=== PATIENT | female | born 1990 | race Caucasian/White ===

== ENCOUNTER 2024-06-02 14:00 | Emergency (ER) | payer MEDICAID, SELFPAY ==
[2024-06-02 14:17] VITALS: BP 127/90; PULSE 83; RESP 16; TEMP 36.8; O2SAT 98; BMI 34.3
--- NOTE | 2024-06-02 14:23 | ED_ITS ---
HPI - Skin/Abscess/Foreign Bdy General: Chief complaint: Skin/Abscess/Foreign Body Stated complaint: thinks she has scabies Time Seen by Provider: 06/02/24 14:21 History of Present Illness: 33-year-old female comes in today for co ncerns of a harvest bite infestation. Patient has treated the That she believes transmitted the infestation to her and symptoms seem to improve a little but has returned. Patient appears nontoxic. Patient appears in no acute distress. Review of Systems General: Reports: 10 or more systems reviewed and unremarkable except in HPI and below Skin/Breast: Reports: rash Physical Exam Const: COMMON NORMALS: alert HENMT: COMMON NORMALS: normocephalic HEAD & SCALP: normocephalic Neck/C-Spine: COMMON NORMALS: full ROM Resp: COMMON NORMALS: normal respiratory effort and clear to auscultation bilaterally AUSCULTATION: clear to auscultation bilaterally Cardio: COMMON NORMALS: regular rate and regular rhythm RATE: regular rate RHYTHM: regular rhythm GI: COMMON NORMALS: non-tender Back/Pelvis: COMMON NORMALS: thoracic and lumbar spine normal to inspection Extremity: COMMON NORMALS: normal to inspection Neuro: SENSORIUM/ORIENTATION: Yes alert Skin: NARRATIVE SKIN EXAM: Patient has crusted lesions multiple across her body. Appearance of insect bites. Course Vital Signs: Vital signs: Vital Signs Temperature 98.3 F 06/02/24 14:17 Pulse Rate 83 06/02/24 14:17 Respiratory Rate 14 06/02/24 14:42 Blood Pressure 127/90 06/02/24 14:17 Pulse Oximetry 98 06/02/24 14:17 Oxygen Delivery Me thod Room Air 06/02/24 14:17 MDM - Skin/Abscess/Foreign Bdy Medicial Decision Making 33-year-old female comes in today for concerns of harvest mite infestation. Patient does have a history of exposure through a infested animal. Patient appears nontoxic. Patient is . Differential diagnosis includes mite infestation, scabies, parasitosis. Go ahead and treat with permethrin topical cream at this time. Recommended repeat treatment in 7 to 14 days. Patient reported understanding of care plan need for follow-up with primary care for further instructions. Patient was agreeable to plan and need for follow-up. No radiology studies performed this visit Discharge Plan Discharge Patient Disposition: Home Clinical Impression: [place] mite infestation Condition: Stable Prescriptions: New permethrin 5 % cream 1 applic topical Q14D Qty: 60 0RF Rx Instructions: apply second treatment 14 days after first treatment Discharge Orders: Discharge ED (Routine); Ordered 06/02/24 Ordered By: Evens Medina Discharge Diet: Usual diet Discharge Activity: Increase activity as tolerated Patient Instructions: Scabies (ED) Activity Restrictions/Additional Instructions: Apply cream head to toe and leave on for 8 to 12 hours. Wash off. Repeat in 1 to 2 weeks as needed. Coding Level of Care Code ED Veterans Services Specialist for Mildred Miller
[2024-06-02 14:42] VITALS: RESP 14
== END 2024-06-02 14:43 | disposition home or self-care (01) ==
PROVIDERS: Emergency Provider Nurse Practitioner Family
DX: B88.0 Other acariasis (principal)
CPT/HCPCS: 99283

== ENCOUNTER 2024-06-08 13:59 | Inpatient (IN) | payer MEDICAID, SELFPAY ==
[2024-06-08] VITALS (12 sets, daily range): BP systolic 124–167; BP diastolic 71–90; PULSE 58–86; RESP 16–18; TEMP 36.7–36.9; O2SAT 97–99; BMI 30.9
[2024-06-08] MEDS: oxytocin 30 UNIT/500 ML BAG 600 UNIT IV (14:11)
[2024-06-08] MEDS: dextrose 5%-lactated ringers 1,000 ML 125 ML IV (14:11)
--- NOTE | 2024-06-08 14:29 | PM.HP ---
Providers/Chief Complaint Admitting Physician: Ash Blanchard MD Chief Complaint: homebirth History of Present Illness Ree Morales is a 33 year old G3 now P3 at 39.2 weeks gestation by her history. is complicated by care in [place] without records available, smoker, precipitous delivery. The patient had been seen Dr. Cade in [place] and had not seen them for the last 2 to 3 weeks. They began to have increased contractions and were evaluated on Thursday but she was only 1 cm dilated at that time so was sent home. On the day of admission, she began to have increased contractions around 11 AM. She felt like she was very weak and could not stand and her took her to her dad's. She was not able to get into the car and they laid her down on a cot in the shed. The patient was unable to stand up and was acting delirious according to her . They called EMS. The patient began to have significant contractions and delivered in her [id number]'s should at 1326 on 06/08/2024. According to the patient's , there were no complications. The patient and infant were brought to the OB unit for further evaluation. I was the next on the list for on-call patients. Upon arrival, the patient's placenta was still in the vaginal vault. The patient currently denies any chest pains, shortness of breath, nausea, vomiting, diarrhea, constipation, dysuria, fever. She denies any complications with the including high blood pressure, gestational diabetes and preeclampsia. She denies any other underlying significant medical complications. History does seem to be limited. Review of Systems Narrative: See HPI Medications/Allergies Home Medications Medication Instructions Recorded Confirmed Last Taken Type permethrin 5 % topical cream 1 applic topical Q14D 2 doses #60 06/02/24 Unknown Rx grams Allergies Allergy/AdvReac Type Severity Reaction Status Date / Time hydrocodone Allergy Unknown Verified 06/02/24 14:20 PFSH Acute PFSH: Surgical History (Updated 06/08/24 @ 14:34 by Ash Blanchard MD) No pertinent past surgical history Social History (Updated 06/08/24 @ 14:34 by Ash Blanchard MD) Smoking and tobacco/nicotine status: current every day tobacco/nicotine user cigarettes Packs smoked per day: 0.25 Alcohol intake: never Substance/Drug Use: never Vitals/I&O/Wt Last Vital Signs Pulse 86 06/08/24 14:15 BP 124/76 06/08/24 14:15 Physical Exam Narrative: General: Alert and oriented x3, exaggerated movements and responses. Eyes: Pupils dilated, equal round and reactive to light and accommodation Mouth: Mucous membranes moist, pharynx non-erythematous Cardiac: Regular rate and rhythm without murmurs Lungs: Clear to auscultation bilaterally without wheezes, crackles or rhonchi Abdomen: Soft, fundus is firm and midline and below the umbilicus. : Placenta still in the vaginal vault with umbilical cord resting on patient's abdomen. Extremities: Trace edema in the bilateral lower extremities, dried blood down the patient's bilateral legs and feet. A&P Assessment and plan (1) Spontaneous vaginal delivery: The patient delivered spontaneously at home and we will proceed with delivering her placenta and the aftercare. We will get blood work done and try and obtain labs from her OB in [place]. Will watch for any signs of complications. (2) Smoker: Attestations Medical Necessity Statement*: The patient will be here for greater than 2 midnights due to routine management of labor and delivery. Coding Level of Care Code Acute Code for Chg Fwd Diagnoses Spontaneous vaginal delivery O80 Smoker F17.200
--- NOTE | 2024-06-08 14:37 | P.PCNOB_ITS ---
Delivery Note: Date of delivery: June 08, 2024 Pre-delivery diagnoses: 1. Intrauterine at 39.2 weeks gestation 2. Smoker 3. Precipitous delivery 4. Patient of Dr. Caed in [place] Post-delivery diagnoses: 1. Intrauterine status post s pontaneous vaginal delivery at 39.2 weeks gestation 2. Smoker 3. Precipitous delivery 4. Patient of Dr. Cade in [place] 5. Delivery of healthy male cornel beckmanng 6 pounds 12 ounces. Apgars unknown. Procedure: Delivery of placenta Delivering Physician: Ash Blanchard MD Estimated blood loss (mL): 100 Findings: 1. Intact placenta with central umbilic al cord insertion site 2. Healthy appearing male infant weighi ng 6 pounds 12 ounces. Pre-Delivery Course: Ree Morales is a 33 year old G3 now P3 at 39.2 weeks gestation by her history. is complicated by care in [place] without records available, smoker, precipitous delivery. The patient had been seen Dr. Cade in [place] and had not seen them for the last 2 to 3 weeks. They began to have increased contractions and were evaluated on Thursday but she was only 1 cm dilated at that time so was sent home. On the day of admission, she began to have increased contractions around 11 AM. She felt like she was very weak and could not stand and her took her to her dad's. She was not able to get into the car and they laid her down on a cot in the shed. The patient was unable to stand up and was acting delirious according to her . They called EMS. The patient began to have significant contractions and delivered in her kilaxz-eq-oih's shed at 1326 on 06/08/2024. The infant's father delivered the baby with the help of EMS. According to the patient's , there were no complications. The patient and were brought to the OB unit for further evaluation. I was the next on the list for unassigned patients. Upon arrival, the patient's placenta was still in the vaginal vault. Dried blood was noted on the bilateral legs and feet. The patient was comfortable. Delivery: The patient was set up and iodine was used to clean the vaginal area. Cord blood was obtained. Traction was placed on umbilical cord and the placenta delivered without complication at 1411 on 06/08/2024. The placenta was noted to be intact with a central umbilical cord insertion site. The uterus was massaged and noted to be firm and midline. It was a little high, so a straight catheter was used to drain the bladder and a urine sample was obtained and sent for urine culture and urine drug screen. The patient did not receive any medication prior to obtaining the sample. The cervix was inspected and no lacerations were noted. The vaginal wall was inspected and a first-degree tear was noted on the right superior vaginal wall. This was not bleeding and no suturing was necessary. The patient's bleeding has been very little. Currently the infant and patient are doing well. History History History 3 Term Miscarriages/Ectopic Living Children 3 Past Pregnancies Del. Date GA/Weeks Outcome Route Wt Inf Gender Labor Lgth Comp. Anesth esia Location 06/08/24 39 live - full term Vaginal 6 lb 12 oz Male Delivery Date: 06/08/24 Last Updated by: Ash Blanchard MD Delivered at home in father in law's shed, saw Dr Cade for care A&P Assessment and plan (1) Spontaneous vaginal delivery: Coding Level of Care Code Acute Code for Chg Fwd Diagnoses Spontaneous vaginal delivery O80
[2024-06-08 15:53] LABS: Amphetamines Screen Urine Positive (Negative); Barbiturates Screen Urine Negative (Negative); Benzodiazepines Screen Urine Negative (Negative); Cocaine Screen Urine Negative (Negative); Opiate Screen Urine Negative (Negative); PCP Screen Urine Negative (Negative); THC Screen Urine Negative (Negative)
[2024-06-08 16:36] LABS: Basophils % 0.4 %; Eosinophils % 0.4 %; Hematocrit 35.8 % (36-47); Lymphocytes # 1.7 10^3/uL (0.8-4.8); Lymphocytes % 15.7 %; Mean Corpuscular HGB Conc 33.5 g/dL (30-55); Mean Corpuscular Hemoglobin 29.5 pg (27-33); Mean Platelet Volume 10.4 fL (7.4-10.4); Monocytes # 0.9 10^3/uL (0.2-0.9); Monocytes % 8.3 %; Neutrophils # 7.89 10^3/uL (1.8-7.7); Nucleated Red Blood Cells # 0.1 /100WBC; Platelet Count 390 10^3/cmm (157-399); Red Blood Count 4.07 10^6/uL (3.85-5.65); Red Cell Distribution Width 16.2 % (12.1-15.1); White Blood Count 10.66 10^3/uL (3.29-11.43)
[2024-06-08 16:58] LABS: Hepatitis B Surface Antigen Non-Reactive (Nonreactive); Rapid Plasma Reagin Syphilis Nonreactive (Nonreactive); Rubella IgG 33.3 IU/mL (0.0-10.0)
[2024-06-08 17:09] LABS: HIV 1 & 2 Antibody Non-Reactive (Non-Reactiv); HIV 1 & 2 Antigen Non-Reactive (Non-Reactiv)
[2024-06-08] MEDS: ibuprofen 800 mg tablet PO (20:13)
[2024-06-08] MEDS: docusate sodium 100 mg Capsule PO (20:14)
[2024-06-09 03:24] LABS: Hematocrit 32.4 % (36-47); Mean Corpuscular HGB Conc 32.7 g/dL (30-55); Mean Corpuscular Hemoglobin 28.6 pg (27-33); Mean Corpuscular Volume 87.3 fl (85-98); Mean Platelet Volume 10.5 fL (7.4-10.4); Platelet Count 342 10^3/cmm (157-399); Red Blood Count 3.71 10^6/uL (3.85-5.65); Red Cell Distribution Width 15.8 % (12.1-15.1); White Blood Count 10.93 10^3/uL (3.29-11.43)
[2024-06-09 04:04] VITALS: BP 111/75; PULSE 69; RESP 16; TEMP 36.8; O2SAT 99
[2024-06-09 06:00] VITALS: BMI 30.9
[2024-06-09] MEDS: PRENATAL VIT NO.130/IRON/FOLIC 1 EACH TABLET PO (08:14)
[2024-06-09] MEDS: ibuprofen 800 mg tablet PO ×2 (08:14→14:39)
[2024-06-09] MEDS: docusate sodium 100 mg Capsule PO (08:14)
[2024-06-09 10:12] VITALS: BP 110/74; PULSE 60; RESP 16; TEMP 36.6; TEMP 36.7
[2024-06-09 14:39] VITALS: BP 119/75; PULSE 73; RESP 16; TEMP 36.6; TEMP 36.7; O2SAT 98
--- NOTE | 2024-06-09 17:10 | P.DS_ITS ---
Discharge Providers Date of Admission: 06/08/24 13:59 Date of Discharge: June 09, 2024 Attending Provider at Admission: Ash Blanchard MD Attending Provider at Discharge: Ash Blanchard MD Diagnoses at Discharge Discharge Diagnosis (1) Spontaneous vaginal delivery: Status: Acute Other Information Additional DC diagnoses/information: 1. Intrauterine status post spontaneous vaginal delivery at 39.2 weeks gestation 2. Smoker 3. Precipitous delivery 4. Patient of Dr. Cade in [place] 5. Delivery of healthy male weighing 6 pounds 12 ounces Reason for Visit Reason for Visit: homebirth Brief History: Ree Morales is a 33 year old G3 now P3 at 39.2 weeks gestation by her history. is complicated by care in [place] without records available, smoker, precipitous delivery. The patient had been seen Dr. Cade in [place] and had not seen them for the last 2 to 3 weeks. They began to have increased contractions and were evaluated on Thursday but she was only 1 cm dilated at that time so was sent home. On the day of admission, she began to have increased contractions around 11 AM. She felt like she was very weak and could not stand and her took her to her dad's. She was not able to get into the car and they laid her down on a cot in the shed. The patient was unable to stand up and was acting delirious according to her . They called EMS. The patient began to have significant contractions and delivered in her [id number]'s shed at 1326 on 06/08/2024. The 's father delivered the baby with the help of EMS. According to the patient's , there were no complications. The patient and infant were brought to the OB unit for further evaluation. I was the next on the list for unassigned patients. Upon arrival, the patient's placenta was still in the vaginal vault. Dried blood was noted on the bilateral legs and feet. The patient was comfortable. Hospital Course Hospital Course The patient's placenta was delivered without complication. She did not require any suturing. Overall her pain has been well-controlled. Her bleeding has been decreasing well. She is ambulating, voiding, passing gas and tolerating food by mouth. The patient did have a positive drug screen for amphetamines that was obtained prior to giving her any other medications. Child protective services has been in contact. The patient is doing well and may be discharged home. All questions were answered. She will plan to follow-up at 6 weeks . Physical Exam Narrative: General: Alert and oriented x3 Cardiac: Regular rate and rhythm without murmurs Lungs: Clear to auscultation bilaterally without wheezes, crackles or rhonchi Abdomen: Soft, mild tenderness over uterus. The uterus is firm and 2 cm below the umbilicus. Extremities: Trace edema in the bilateral lower extremities Discharge Data Studies Completed and Pending Pending at discharge Category Date Time Status Chlamydia/Gonorrh RNA,TMA URO Stat Lab 06/08/24 14:40 Received Laboratory Results WBC 10.93 10^3/uL (3.29-11.43) 06/09/24 03:15 RBC 3.71 10^6/uL (3.85-5.65) L 06/09/24 03:15 Hgb 10.60 g/dL (11.27-16.99) L 06/09/24 03:15 Hct 32.4 % (36-47) L 06/09/24 03:15 MCV 87.3 fl (85-98) 06/09/24 03:15 MCH 28.6 pg (27-33) 06/09/24 03:15 MCHC 32.7 g/dL (30-55) 06/09/24 03:15 RDW 15.8 % (12.1-15.1) H 06/09/24 03:15 Plt Count 342 10^3/cmm (157-399) 06/09/24 03:15 MPV 10.5 fL (7.4-10.4) H 06/09/24 03:15 Neut % (Auto) 74.0 % 06/08/24 16:07 Lymph % (Auto) 15.7 % 06/08/24 16:07 Brown % (Auto) 8.3 % 06/08/24 16:07 Eos % (Auto) 0.4 % 06/08/24 16:07 Baso % (Auto) 0.4 % 06/08/24 16:07 Neut # (Auto) 7.89 10^3/uL (1.8-7.7) H 06/08/24 16:07 Lymph # (Auto) 1.7 10^3/uL (0.8-4.8) 06/08/24 16:07 Brown # (Auto) 0.9 10^3/uL (0.2-0.9) 06/08/24 16:07 Eos # (Auto) 0.0 10^3/uL (0.0-0.8) 06/08/24 16:07 Baso # (Auto) 0.0 10^3/uL (0.0-0.1) 06/08/24 16:07 Nucleated RBC % (auto) 1.0 % 06/08/24 16:07 Nucleated RBCs # 0.1 /100WBC 06/08/24 16:07 Urine Opiates Screen Negative ng/mL (Negative) 06/08/24 14:40 Ur Barbiturates Screen Negative ng/mL (Negative) 06/08/24 14:40 Ur Phencyclidine Scrn Negative ng/mL (Negative) 06/08/24 14:40 Ur Amphetamines Screen Positive ng/mL (Negative) H 06/08/24 14:40 U Benzodiazepines Scrn Negative ng/mL (Negative) 06/08/24 14:40 Urine Cocaine Screen Negative ng/mL (Negative) 06/08/24 14:40 U Marijuana (THC) Screen Negative ng/mL (Negative) 06/08/24 14:40 RPR Nonreactive (Nonreactive) 06/08/24 16:07 Hep Bs Antigen Cancelled 06/08/24 16:07 Hep Bs Antigen Non-reactive (Nonreactive) 06/08/24 16:07 HIV 1&2 Ab & HIV 1 Ag Non-reactive (Non-Reactiv) 06/08/24 16:07 HIV 1&2 Antibody Non-reactive (Non-Reactiv) 06/08/24 16:07 Rubella IgG Antibody 33.3 IU/mL (0.0-10.0) H 06/08/24 16:07 Blood Type A Positive 06/08/24 16:07 Rho(D) Type Rh positive 06/08/24 16:07 Antibody Screen Negative 06/08/24 16:07 Vitals Last Vital Signs Temp 98.0 F 06/09/24 14:39 Pulse 73 06/09/24 14:39 Resp 16 06/09/24 14:39 BP 119/75 06/09/24 14:39 Pulse Ox 98 06/09/24 14:39 O2 Del Method Room Air 06/09/24 14:39 Discharge Plan Discharge Patient Disposition: Home Condition: Stable Prescriptions: New ibuprofen 800 mg Tablet 800 mg PO TID Qty: 30 0RF Vitamin 27 mg iron- 800 mcg Tablet 1 tab PO DAILY Qty: 30 0RF ferrous sulfate 325 mg (65 mg iron) tablet 325 mg PO DAILY Qty: 30 0RF Continued permethrin 5 % cream 1 applic topical Q14D Qty: 60 0RF Rx Instructions: apply second treatment 14 days after first treatment Discharge Orders: Discharge Order (Routine); Ordered 06/09/24 Ordered By: Ash Blanchard Referrals: Ash Blanchard MD [Physician] - 6 Weeks Discharge Diet: Regular Discharge Activity: Increase activity as tolerated Patient Instructions: Depression (DC), Opioid Safety (DC), Preeclampsia and Eclampsia After Delivery (GEN), Hemorrhage (DC), OB D&C - [facility], OB Food/Drug Interaction Guide, Opioid Safety, OB [facility], OB Vaginal Deliveries, Abnormal Bleeding Activity Restrictions/Additional Instructions: Nothing per vagina for 6 weeks. Showers are recommended instead of baths for the first 6 weeks. Follow up with your DEPOSITION OPERATOR at 6 weeks or sooner if needed. Discharge Attestations Time Spent in Discharge Care*: less than 30 min Quality Metrics Clinical Quality Measures [ No reported AMI, CVA or VTE this stay] Coding Level of Care Code Acute Code for Chg Fwd Diagnoses Spontaneous vaginal delivery O80
[2024-06-09 17:31] VITALS: BP 133/27; PULSE 73; RESP 15; TEMP 36.6; O2SAT 98
[2024-06-10 15:40] LABS: Chlamydia Trachomatis RNA TMA NOT DETECTED (NOT DETECTED); Neisseria Gonorrhoeae RNA, TMA NOT DETECTED (NOT DETECTED)
== END 2024-06-09 17:32 | disposition home or self-care (01) | DRG 807 ==
PROVIDERS: Admitting Provider Family Medicine; Visit Provider Family Medicine
DX: O99.334 Smoking (tobacco) complicating childbirth (principal); Z37.0 Single live birth; F17.210 Nicotine dependence, cigarettes, uncomplicated; O62.3 Precipitate labor; Z3A.39 39 weeks gestation of pregnancy; O99.324 Drug use complicating childbirth; F15.90 Other stimulant use, unspecified, uncomplicated; O70.0 First degree perineal laceration during delivery
CPT/HCPCS: 36415; 59409; 80306; 85025; 85027; 86592; 86762; 86850; 86900; 87340; 87491; 87591; 87806; J2590; J7121

== ENCOUNTER 2024-07-06 16:33 | Emergency (ER) | payer SELFPAY ==
[2024-07-06 17:04] VITALS: BP 98/64; PULSE 92; RESP 16; TEMP 36.9; O2SAT 100; BMI 22.3
--- NOTE | 2024-07-06 17:33 | ED_ITS ---
HPI - Skin/Abscess/Foreign Bdy General: Chief complaint: Skin/Abscess/Foreign Body Stated complaint: Scabies Time Seen by Provider: 07/06/24 17:33 Source: patient Mode of arrival: ambulatory Limitations: no limitations History of Present Illness: This patient returns to the Emergency Department because she states she has another infestation of scabies. She states that she had an episode in May that was treated effectively but now it has returned and both she and her significant other are affected. She states that the EEG the areas are very pruritic. She denies any other symptoms and she states she has had no other concerns about other infestation such as bedbugs, fleas, etc. She denies any fever chills or other constitutional complaints. Tetanus up to date: yes Location: generalized Associated symptoms: Reports itching Related Data Previous Rx's Medication Instructions Recorded permethrin 5 % topical cream 1 applic topical Q14D 2 doses #60 06/02/24 grams ferrous sulfate 325 mg (65 mg 325 mg PO DAILY #30 tabs 06/09/24 iron) tablet ibuprofen 800 mg tablet 800 mg PO TID #30 tabs 06/09/24 vits no.130-ferrous fum 1 tab PO DAILY #30 tabs 06/09/24 27 mg iron-folic acid 800 mcg tablet ( Vitamin) permethrin 5 % topical cream 1 applic topical Q14D 2 doses #60 07/06/24 (Elimite) grams Allergies Allergy/AdvReac Type Severity Reaction Status Date / Time hydrocodone Allergy Unknown Verified 06/02/24 14:20 Review of Systems General: Reports: 10 or more systems reviewed and unremarkable except in HPI and below Skin/Breast: Reports: rash and pruritus All/Imm: Denies: urticaria, throat swelling, tongue swelling or facial sw elling [facility] ED PFSH: Medical History (Updated 07/06/24 @ 17:34 by Dallas Conte DO) Psychiatric care Surgical History (Updated 06/08/24 @ 14:34 by Ash Blanchard MD) No pertinent past surgical history Social History Smoking and tobacco/nicotine status: current every day tobacco/nicotine user cigarettes Packs smoked per day: 0.25 Alcohol intake: never Substance/Drug Use: never Physical Exam Narrative: EXAM NARRATIVE: She is alert and in no acute distress answers questions appropriately in a goal- directed fashion and is cooperative. Const: COMMON NORMALS: no acute distress, average body habitus and patient oriented x3 GENERAL APPEARANCE: cooperative HENMT: COMMON NORMALS: normocephalic and moist oral mucous membranes HEAD & SCALP: normocephalic Eye: COMMON NORMALS: Equal, round and reactive pupils present PUPIL: Yes Equal, round and reactive pupils present Neck/C-Spine: COMMON NORMALS: full ROM Lymph: LYMPHATIC: no lymphadenopathy noted Resp: COMMON NORMALS: normal respiratory effort EFFORT & INSPECTION: Yes able to speak in complete sentences Cardio: COMMON NORMALS: Peripheral pulses 2+ throughout PERIPHERAL PULSES: Peripheral pulses 2+ throughout Back/Pelvis: COMMON NORMALS: thoraco-lumbar ROM normal Extremity: COMMON NORMALS: full ROM, capillary refill normal and no joint enl argement Neuro: COMMON NORMALS: patient oriented x3, moves all extremities and no focal motor deficits Psych: COMMON NORMALS: mental status grossly normal Skin: NARRATIVE SKIN EXAM: She has multiple excoriated papules particularly on the skin of her ankles lower legs some on the intertriginous areas of her feet. She has a few on the medial portions of her upper and forearms as well as some involvement in her eggs preexist and axilla area. Some linear burrowing and certainly some excoriations noted. No proximal lymphangitis. No serpiginous erythema or other suggestion of infection etc. Course Vital Signs: Vital signs: Vital Signs Temperature 98.5 F 07/06/24 17:04 Pulse Rate 92 07/06/24 17:04 Respiratory Rate 16 07/06/24 17:04 Blood Pressure 98/64 07/06/24 17:04 Pulse Oximetry 100 07/06/24 17:04 Oxygen Delivery Me thod Room Air 07/06/24 17:04 MDM - Skin/Abscess/Foreign Bdy Medicial Decision Making Patient presents as per the HPI. Her clinical exam is consistent with likely scabies infestation. No evidence of cellulitis, other potential infestation such as a dermatophyte, allergic reaction, etc. Will plan on treating with topical permethrin with instructions and follow-up precautions. No radiology studies performed this visit Discharge Plan Discharge Patient Disposition: Home Clinical Impression: Scabies infestation Condition: Stable Prescriptions: New Elimite 5 % cream 1 applic topical Q14D Qty: 60 3RF Rx Instructions: apply second treatment 14 days after first treatment if live lice remain No Action permethrin 5 % cream 1 applic topical Q14D Qty: 60 0RF Rx Instructions: apply second treatment 14 days after first treatment ibuprofen 800 mg Tablet 800 mg PO TID Qty: 30 0RF Vitamin 27 mg iron- 800 mcg Tablet 1 tab PO DAILY Qty: 30 0RF ferrous sulfate 325 mg (65 mg iron) tablet 325 mg PO DAILY Qty: 30 0RF Discharge Orders: Discharge ED (Routine); Ordered 07/06/24 Ordered By: Dallas Conte Discharge Diet: Usual diet Discharge Activity: Increase activity as tolerated Patient Instructions: Opioid Safety, Pain Management, Scabies - Adult Coding Level of Care Code ED Computer Operations Analyst for Mildred Miller
== END 2024-07-06 17:38 | disposition home or self-care (01) ==
PROVIDERS: Emergency Provider Emergency Medicine
DX: B86 Scabies (principal); F17.210 Nicotine dependence, cigarettes, uncomplicated
CPT/HCPCS: 99283

== ENCOUNTER → 2024-09-19 15:33 | Outpatient (BNVA) | payer MEDICAID, SELFPAY | PROVIDERS: Visit Provider Family Medicine | DX: Z39.2 Encounter for routine postpartum follow-up (principal) | CPT/HCPCS: 87491; 87591; 87624 ==